=== PATIENT | female | born 1990 | race Caucasian/White ===

== ENCOUNTER 2019-01-24 07:43 | Emergency (ER) | payer BC, OTHER ==
[~2019-01-24] VITALS: Ht 170.2 cm; Wt 86.2 kg
[~2019-01-24 07:43] MED LIST: AVELOX 400 MG400 M1; IBUPROFEN 800800 M1 PO; PAXIL10 MG PO; PREDNISOL15 ML OP; PREDNISONE50 MG PO; PROAIR HFA8.5 GM IH; SINGULAIR 10 MG10 M1 PO; TRI-SPRINTEC1 EACH PO; VENTOLIN HFA 1818 GM INH; ZPAK PO
[2019-01-24] MEDS ORDERED: SYNTHROID25 MC1 PO (07:51)
[2019-01-24 09:12] LABS: ABSOLUTE NEUTROPHILS 5.2 thou/uL (1.4-8.2); BASOPHILS 0.3 % (0.0-2.0); EOSINOPHILS 4.3 % (0.0-3.0); HEMATOCRIT 40.7 % (37.0-47.0); HEMOGLOBIN 13.4 gm/dL (12.0-15.0); LYMPHOCYTES 32.9 % (24.0-44.0); MCH 28.3 pg (26.0-34.0); MCV 85.8 fL (80.0-100.0); MONOCYTES 6.3 % (1.0-8.0); PLATELET COUNT 320 thou/uL (150-400); POLYS 56.2 % (36.0-66.0); RBC 4.74 mil/uL (4.20-5.00); RDW 13.4 % (10.5-14.5); WBC 9.2 thou/uL (4.0-11.0)
[2019-01-24 09:18] LABS: CALCIUM 9.2 mg/dL (8.5-10.1); CREATININE 0.9 mg/dL (0.6-1.0); POTASSIUM 4.2 mmol/L (3.5-5.1)
[2019-01-24 09:24] LABS: ALBUMIN 3.8 g/dL (3.4-5.0); TOTAL BILIRUBIN 0.3 mg/dL (<0.1-1.0); TOTAL PROTEIN 7.3 g/dL (6.4-8.2)
[2019-01-24] MEDS ORDERED: PRENATAL COMPL1 EACH PO (10:52)
[2019-01-24] MEDS ORDERED: COMPAZINE10 MG PO (10:52)
[2019-01-24 11:10] VITALS: BP 123/85
--- NOTE | 2019-01-24 15:12 | EKG ---
[address] [address] ELECTROCARDIOGRAM REPORT Name: HARDEEP JEFF Room #: [facility] CENTERKarel#: [id number] Admission: 01/24/19 Attend Phys: Discharge: 01/24/19 Date of : 89 Report #: [id number] THIS REPORT FOR: //name// [facility] ED Test Date: 2019-01-24 Test Time: 08:33:18 Pat Name: HARDEEP JEFF Department: Room: Gender: F [employer] Operator: [place] : 1990 Requested By: Oli Mcdonald Order Number: [id number] MD: Maxwell Bruno Measurements Intervals [place] Rate: 57 P: 28 ID: [id number] QRS: 58 QRSD: 84 T: 29 QT: 379 QTc: 369 Interpretive Statements Sinus rhythm Baseline wander in lead(s) V1,V4 Compared to ECG 01/10/2012 19:54:30 Sinus tachycardia no longer present ST (T wave) deviation no longer present Possible ischemia no longer present Electronically Signed On 01-24-2019 15:12:04 CDT by Maxwell Bruno [email or web address] <ELECTRONICALLY SIGNED> By: Maxwell Bruno MD 01/24/19 1512 2 Maxwell Bruno MD /EPI
== END 2019-01-24 11:15 | disposition home or self-care (01) ==
LOC: ER 07:43
PROVIDERS: Emergency Medicine
DX: O26.891 Other specified pregnancy related conditions, first trimester (principal); O99.511 Diseases of the respiratory system complicating pregnancy, first trimester; G43.909 Migraine, unspecified, not intractable, without status migrainosus; R55 Syncope and collapse; J45.909 Unspecified asthma, uncomplicated; F32.9 Major depressive disorder, single episode, unspecified; Z3A.01 Less than 8 weeks gestation of pregnancy; Z90.89 Acquired absence of other organs; Z88.8 Allergy status to other drugs, medicaments and biological substances